=== PATIENT | male | born 1975 | race Caucasian/White ===

== ENCOUNTER 2020-03-03 19:32 | Emergency (ER) | payer BC ==
[~2020-03-03] VITALS: Ht 182.9 cm; Wt 90.9 kg
[2020-03-03 19:57] VITALS: BP 170/104
[2020-03-03] MEDS ORDERED: predniSONE 20 MG TABLET PO ONE (20:15)
[2020-03-03] MEDS ORDERED: diphenhydrAMINE 50 MG/ML VIAL IM ONE (20:15)
[2020-03-03] MEDS ORDERED: FEXO180T81 PO (20:17)
[2020-03-03] MEDS ORDERED: PRED20TA PO (20:17)
[2020-03-03] MEDS ORDERED: DIPH25CA58 PO (20:17)
--- NOTE | 2020-03-03 20:17 | PHYS DOC ---
Past Medical History Past Medical History: No Pertinent History Past Surgical History: Other Additional Past Surgical Histo: RIGHT GROIN Smoking Status: Never Smoker Alcohol Use: Occasionally General Adult EDM: Chief Complaint: SKIN RASH/ABSCESS HPI: HPI: Patient is a 44 year old male presents with chief complaint of rash. Patient was at a bonfire last evening and this morning woke up with a rash on his face neck left arm and left leg. Patient says he is extremely allergic to poison bronwyn and they were throwing brush in the bonfire which may have triggered this response. Patient denies any trouble breathing or swallowing. Patient denies any fevers, chills, cough or URI symptoms. Symptoms are described as itchy and are better when he scratches them. Review of Systems: Review of Systems: Constitutional: Denies fever or chills. [] Eyes: Denies change in visual acuity. [] HENT: Denies nasal congestion or sore throat. [] Respiratory: Denies cough or shortness of breath. [] Cardiovascular: Denies chest pain or edema. [] GI: Denies abdominal pain, nausea, vomiting, bloody stools or diarrhea. [] : Denies dysuria. [] Musculoskeletal: Denies back pain or joint pain. [] Integument: Complains of rash Neurologic: Denies headache, focal weakness or sensory changes. [] Endocrine: Denies polyuria or polydipsia. [] Lymphatic: Denies swollen glands. [] Psychiatric: Denies depression or anxiety. [] Heart Score: Risk Factors: Risk Factors: DM, Current or recent (<one month) smoker, HTN, HLP, family history of CAD, obesity. Risk Scores: Score 0 - 3: 2.5% MACE over next 6 weeks - Discharge Home Score 4 - 6: 20.3% MACE over next 6 weeks - Admit for Clinical Observation Score 7 - 10: 72.7% MACE over next 6 weeks - Early Invasive Strategies Current Medications: Current Medications Medications (Trade) Dose Ordered Sig/Bibiana Start Time Stop Time Status Last Admin Dose Admin Diphenhydramine HCl (Benadryl) 50 mg 1X ONCE 03/03/20 20:15 03/03/20 20:16 UNV Prednisone (Prednisone) 60 mg 1X ONCE 03/03/20 20:15 03/03/20 20:16 UNV Physical Exam: PE: Constitutional: Well developed, well nourished, no acute distress, non-toxic appearance. [] HENT: atraumatic, bilateral external ears normal, no mucosal involvement nose normal. [] Diffuse rash on the face worse on the right side consistent with contact dermatitis Eyes: PERRLA, EOMI, conjunctiva normal, no discharge. [] Right periorbital edema which is mild Neck: Rash on the anterior neck consistent with contact dermatitis Cardiovascular:Heart rate regular rhythm, peripheral pulse intact cap refill is brisk Lungs & Thorax: Bilateral breath sounds clear, no respiratory distress Abdomen: soft, no tenderness, no masses, no pulsatile masses. [] Skin: Diffuse rash most prominent on the face especially on the right side anterior neck left antecubital fossa and left inner thigh. Rash consistent with contact dermatitis. No signs of superinfection. Back: No tenderness, no CVA tenderness. [] Extremities: Erythematous rash consistent with contact dermatitis on the left inner thigh and left antecubital fossa Neurologic: Alert and oriented X 3, normal motor function, normal sensory function, no focal deficits noted. [] Psychologic: Affect normal, judgement normal, mood normal. [] Current Patient Data: Vital Signs: Vital Signs Date Time Temp Pulse Resp B/P (MAP) Pulse Ox O2 Delivery O2 Flow Rate FiO2 03/03/20 19:57 98.1 100 14 170/104 (126) 98 Room Air 98.1 EKG: EKG: [] Radiology/Procedures: Radiology/Procedures: [] Course & Med Decision Making: Course & Med Decision Making Pertinent Labs and Imaging studies reviewed. (See chart for details) [] 44-year-old male presents with rash consistent with contact dermatitis. There is no mucosal involvement. Patient has no respiratory distress. Patient replaced on Benadryl to take in the evening and then nonsedative antihistamine during the day and a 7-day course of steroids. Gilaon Disclaimer: Charlene Disclaimer: This electronic medical record was generated, in whole or in part, using a voice recognition dictation system. Departure Departure Impression: Primary Impression: Contact dermatitis Disposition: 01 DC HOME SELF CARE/HOMELESS Condition: LEFT WITHOUT BEING SEEN Referrals: NO PCP (PCP) [facility] [address] [place] [address] [facility], [facility] [address] [place] [address] [facility] [address] Patient Instructions: Contact Dermatitis Additional Instructions: EMERGENCY DEPARTMENT GENERAL DISCHARGE INSTRUCTIONS THANK YOU for coming to [facility] Emergency Department (ED) today and trusting us with your care. We trust that you had a positive experience in our Emergency Department. If you wish to speak to the department Management you can contact the mirror department supervisor at . YOUR FOLLOW UP INSTRUCTIONS ARE FOLLOWS: Do you have a private doctor? If you do not have a private doctor, please ask for a resource list of physicians or clinics that may be able to assist you with follow up care. The Emergency Physician has interpreted your x-rays. The X-ray specialist will also review them. If there is a change in the findings you will be notified in 48 hours when at all possible. A lab test or lab culture may have been done, your results will be reviewed and you will be notified if you need a change in treatment. ADDITIONAL INSTRUCTIONS AND INFORMATION Your care today has been supervised by a physician who is specially trained in emergency care. Many problems require more than one evaluation for a complete diagnosis and treatment. We recommend that you schedule your follow up appointment as recommended to ensure complete treatment of your illness or injury. If you are unable to obtain follow up care and continue to have a problem, or if your condition worsens we recommend that you return to the ED. We are not able to safely determine your condition over the phone nor are we able to give sound medical advice over the phone. For these safety reasons, if you call for medical advice we will ask you to come to the ED for further evaluation If you have any questions regarding these discharge instructions please call the ED at . SAFETY INFORMATION In the interest of safety, wellness, and injury prevention; we encourage you to wear your seatbelt, if you smoke; quit smoking, and we encourage your family to use protective helmet for bicycling and other sporting events that present an increased risk for head injury. IF YOUR SYMPTOMS WORSEN OR NEW SYMPTOMS DEVELOP, OR YOU HAVE CONCERNS ABOUT YOUR CONDITION; OR IF YOUR CONDITION WORSENS WHILE YOU ARE WAITING FOR YOUR FOLLOW UP APPOINTMENT; EITHER CONTACT YOUR PRIMARY CARE DOCTOR, THE PHYSICIAN WHOSE NAME AND NUMBER YOU WERE GIVEN, OR RETURN TO THE ED IMMEDIATELY. Scripts Prednisone (PREDNISONE) 20 Mg Tablet 3 TAB PO DAILY for 7 Days, #21 TAB Prov: LINDA BASS MD 03/03/20 Diphenhydramine Hcl (BENADRYL) 25 Mg Capsule 2 CAP PO QHS for ITCHING for 30 Days, #60 CAP 0 Refills Prov: LINDA BASS MD 03/03/20 Fexofenadine Hcl (JEREMY ALLERGY) 180 Mg Tablet 1 TAB PO DAILY for allergy symptoms for 14 Days, #14 TAB 0 Refills Prov: LINDA BASS MD 03/03/20 LINDA BASS MD Mar 03, 2020 20:17
== END 2020-03-03 21:10 | disposition home or self-care (01) ==
LOC: ER 19:32
DX: L25.9 Unspecified contact dermatitis, unspecified cause (principal)
CPT/HCPCS: 96372; 99283; J1200; J7512